=== PATIENT | female | born 1945 | race Caucasian/White ===

== ENCOUNTER → 2017-02-13 | Outpatient (CLI) | payer BC ==
[~2017-02-13] MED LIST: AMB5 PO; ASPI1TAB48 PO; CIPR-255 PO; SERT25TA PO; SYN25 PO; SYN50 PO
[2017-02-13 12:34] LABS: CHOLESTEROL/HDL RATIO 3.6; THYROID STIMULATING HORMONE 0.672 uIu/ml (0.300-4.500)
== END | disposition home or self-care (01) ==
LOC: C.LABBC 07:36
PROVIDERS: ATTEND Internal Medicine
DX: E78.5 Hyperlipidemia, unspecified (principal); N95.2 Postmenopausal atrophic vaginitis; E03.9 Hypothyroidism, unspecified

== ENCOUNTER → 2017-04-20 | Outpatient (CLI) | payer BC | END | disposition home or self-care (01) | LOC: C.LAB 10:21 | PROVIDERS: ATTEND Orthopaedic Surgery Sports Medicine | DX: Z01.810 Encounter for preprocedural cardiovascular examination (principal) ==

== ENCOUNTER → 2018-03-08 | Outpatient (CLI) | payer BC ==
[2018-03-08 11:25] LABS: AST/SGOT 20 U/L (15-37); BLOOD UREA NITROGEN 21 mg/dl (7-18); CALCIUM 8.7 mg/dl (8.5-10.1); CARBON DIOXIDE 26 mmol/L (21-32); CREATININE 1.01 mg/dl (0.60-1.20); GLUCOSE 90 mg/dl (70-99); POTASSIUM 4.1 mmol/L (3.5-5.1); SODIUM 141 mmol/L (136-145)
[2018-03-08 11:36] LABS: ALT/SGPT 26 U/L (12-78); CHOLESTEROL 228 mg/dl (0-200); LDL CHOLESTEROL CALCULATED 150 mg/dl
== END | disposition home or self-care (01) ==
LOC: C.LABBC 08:09
PROVIDERS: ATTEND Internal Medicine
DX: E78.5 Hyperlipidemia, unspecified (principal); E55.9 Vitamin D deficiency, unspecified; E03.9 Hypothyroidism, unspecified

== ENCOUNTER 2025-04-28 05:25 | Observation (INO) ==
--- NOTE | 2025-03-30 15:27 | PAT Medication Instructions ---
Medication Instructions Date of Service March 30, 2025 Home Medications Medication Instructions Recorded nystatin-triamcinolone 100,000 1 applic topical BID PRN rash #30 08/30/21 unit/g-0.1 % topical cream grams zolpidem 5 mg tablet 5 mg PO HS PRN sleep #30 tabs 03/24/25 cholecalciferol (vitamin D3) 50 mcg (2,000 unit) capsule 2,000 units PO QAM nystatin-triamcinolone 100,000 unit/g-0.1 % topical cream 1 applic topical BID PRN rash zolpidem 5 mg tablet 5 mg PO HS PRN sleep acetaminophen 500 mg tablet 500 mg PO Q6H PRN prn escitalopram oxalate 5 mg tablet 5 mg PO QPM ibuprofen 200 mg tablet (Advil) 200 mg PO Q6H PRN prn levothyroxine 50 mcg tablet 50 mcg PO QAM rosuvastatin 10 mg tablet 10 mg PO QPM telmisartan 20 mg tablet 10 mg PO QAM ASK your surgeon for instructions ibuprofen 200 mg tablet (Advil) 200 mg PO Q6H PRN prn STOP taking 24 hours before surgery nystatin-triamcinolone 100,000 unit/g-0.1 % topical cream 1 applic topical BID PRN rash DO NOT take the morning of surgery cholecalciferol (vitamin D3) 50 mcg (2,000 unit) capsule 2,000 units PO QAM telmisartan 20 mg tablet 10 mg PO QAM Take morning of surgery With a small sip of water, OTHERWISE NOTHING TO EAT OR DRINK AFTER MIDNIGHT: acetaminophen 500 mg tablet 500 mg PO Q6H PRN prn (if needed) levothyroxine 50 mcg tablet 50 mcg PO QAM Take evening before surgery zolpidem 5 mg tablet 5 mg PO HS PRN sleep (if needed) acetaminophen 500 mg tablet 500 mg PO Q6H PRN prn (if needed) escitalopram oxalate 5 mg tablet 5 mg PO QPM rosuvastatin 10 mg tablet 10 mg PO QPM Other Notes If you have any questions please call us at [phone] or [phone] or [phone] or [phone]
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
[2025-04-28] MEDS: dexAMETHasone**PF** 10 MG/ML VIAL IV SCH (05:44)
[2025-04-28] MEDS: CeleBREX 200 MG CAP PO SCH (05:45)
[2025-04-28] MEDS: ACETAMINOPHEN 500 MG TAB PO SCH ×2 (05:45→11:31)
[2025-04-28] MEDS: FAMOTIDINE 20 MG TAB PO SCH (05:45)
[2025-04-28] MEDS: LR 15ML/HR IV SCH (05:45)
[2025-04-28] MEDS: LR 60ML/HR IV SCH (05:45)
[2025-04-28] MEDS: METOCLOPRAMIDE HCL 10 MG TABLET PO SCH (05:45)
[2025-04-28] MEDS ORDERED: ROPIVACAINE 0.5% 5 MG/ML 30 ML VIAL ONE (06:14)
[2025-04-28] MEDS ORDERED: BUPIVACAINE 0.5 % 5 MG/1 ML PF 10ML VIAL ONE (06:14)
[2025-04-28] MEDS ORDERED: EPINEPHrine INJ 1 MG/ML AMP ONE (06:15)
--- NOTE | 2025-04-28 06:40 | History & Physical Bridge Note ---
Date of Service April 28, 2025 History & Physical Bridge Note I have examined the patient, reviewed the History & Physical and in the interval since the performance of the History & Physical I have noted the following changes of clinical significance: no changes noted
[2025-04-28] MEDS ORDERED: MIDAZOLAM HCL 1 MG/ML 2ML VIAL ONE (06:44)
[2025-04-28] MEDS ORDERED: fentaNYL citrate PF 100 MCG/2 ML VIAL ONE (06:44)
[2025-04-28] MEDS ORDERED: ePHEDrine sulfate 50 MG/ML AMP IV PRN (07:04)
[2025-04-28] MEDS ORDERED: ATROPINE SULFATE 0.1 MG/ML 10ML SYR IV PRN (07:04)
[2025-04-28] MEDS ORDERED: LIDOCAINE 2% 2 ML VIAL/AMP(20MG/ML) INFIL ONE (07:16)
[2025-04-28] MEDS ORDERED: ePHEDrine sulfate 50 MG/5 ML SYR ONE (07:16)
[2025-04-28] MEDS ORDERED: PROPOFOL IV EMULSION 10 MG/ML 20 ML VIAL IV ONE (07:16)
[2025-04-28] MEDS: ROPIV 0.5% 246mg, Ketorolac 30mg, EPINEPHrine 0.5mg in NSS INFIL SCH (07:42)
[2025-04-28] MEDS: TRANEXAMIC ACID 1,000 MG **IV Intra-op IV SCH (08:03)
[2025-04-28] MEDS ORDERED: KETOROLAC 30 MG/ML VIAL ONE (08:31)
--- NOTE | 2025-04-28 09:01 | Operative Report ---
PG Post Operative Report Pre & Post Diagnosis Operation Date: 04/28/25 07:00 Pre-Op Diagnosis: Osteoarthrtitis Knee Right Post-Op Diagnosis: Osteoarthrtitis Knee Right I identified the patient and participated in the time-out.: Yes Procedure Operation Date: 04/28/25 07:00 Actual Procedures p Right Unicompartmental Knee(Right) - Phil Hearn MD Surgeon Phil Hearn MD Test Lead Rob Joseph PA-C Estimated Blood Loss 25 Findings Consistent with Post-Op Diagnosis Operative findings were advanced right knee medial compartment DJD. She had grade 4 [id number] disease of the distal femur as well as the proximal tibia. She had some fairly mild wear of the trochlea. The lateral compartment was well-preserved. Specimens Right knee sent for pathology. Anesthesia Type Spinal MAC Complications none Disposition Accompanied Patient To Recovery: No Indications The patient is an 80-year-old very active female whose had a several year history of increasing bilateral knee pain discomfort right side greater than left. She been through extensive conservative treatment over the years which became less successful over time. Will start and affect her ability to maintain an active lifestyle. X-rays show progressive knee arthritis. Her symptoms and radiographic findings localized to the medial side of the knee. She elected proceed with right partial knee replacement. Description of Procedure Operative implants consists of: 1 Biomet [place] size small femoral component. 2. Biomet [place] right medial size D tibial tray. 3. 5 mm mobile-bearing polyethylene insert. The patient was taken to the operating, identified, placed on the operating table in the supine position. All conductors were appropriately padded. IV antibiotics fibra anesthesia team. A spinal anesthetic and adductor canal block had been provided in the holding area. A Bustillo catheter was placed in sterile fashion. Right Tetrick was then placed. The right lower extremity was then prepped and draped in usual sterile fashion. The right leg was elevated and exsanguinated with use of an Esmarch and a turn was placed at 300 mmHg. An anterior approach of the right knee was then performed through a longitudinal incision beginning at the superior pole of the patella and extending just medial to the tibial tubercle. Sharp dissection was through subcutaneous tissue down the extensor mechanism. A medial parapatellar arthrotomy incision was made with the superior limb extending into the VMO. Some slight subperiosteal dissection was carried out medially taking great care to protect the MCL. The fat pad was resected. The medial meniscus was removed. I then examined the knee and the lateral compartment is pretty well-preserved. She had a very minimal trochlear disease and we elected proceed with a partial knee replacement. The osteophytes taken distal femur. The femur was then sized to a size small. The small spoon was placed. This was attached to the external tibial alignment jig with a 4G clamp. The tibial jig was pinned in place. The proximal tibial cut was made. The tibia sized to a size B. Attention drawn the femur. The distal femur examined with a sharp drill. The IM elvira was placed. A size small femoral template was placed and attached to the IM elvira. The holes were drilled for the femoral component. The posterior cutting guide was placed and a posterior cut was made. The 0 spigot was used and the distal femur was milled. I then resected the remnant of the medial meniscus. We then trialed the knee and the 5 feeler gauge fit well and flexion and the 2 in extension. Therefore use of 3 spigot and milled the distal femur. We trialed the knee in the 5 feeler gauge fit appropriately in flexion extension. We elected place these implants. All trial implants were removed. Posterior osteophyte cutting guide was placed. The posterior osteophyte was removed along with the anterior femoral bone. The cement drill was used to create some cement holes for the distal femur. The tibia was pinned in place. The toothbrush sawblade was used to create the defect for the keel. We then trialed the knee 1 more time and the 5 insert fit appropriately. We elected place his implants. All trial implants were removed. A single batch of [place] G cement was mixed. A Biomet [place] right medial size D tibial tray was cemented in place followed by a small femoral component. All extraneous cement was removed. The 5 feeler gauge was placed and the knee was brought out in a doing about 40 degrees short of full extension. Once the cement hardened a final cement check was then performed. We trialed the knee 1 more time and the 5 insert fit appropriately. The permanent 5 insert was placed. Attention drawn toward closing. The wound was irrigated extensively. We injected locally with 100 cc of Ortho mix. The patient did receive 1 g tranexamic acid. The tourniquet was then let down for final tourniquet time 63 minutes. Hemostasis assured with electrocautery. Extensor Metros then closed with #1 Vicryl suture in a [id number] fashion. The subcutaneous tissue then closed with 2 Dexon suture in a buried interrupted fashion skin was closed skin naveed. Leg was then cleaned and dried and a sterile dressing with Xeroform, 4 x 4's, ABD pad, sterile cast padding, Jose Luis bandage were applied. Patient then transferred to the recovery room in stable condition. Patient tolerated procedure well and there were no complications. Rob Joseph, my physician assistant sales center manager, was present for the entire procedure. His assistance was essential and required for appropriate patient positioning, prepping and draping, surgical exposure, performing the technical details of the operation, placement the implants, closure of the wound, and placement of the sterile bandage. I attest to the content of the Intraoperative Record and any orders documented therein. Any exceptions are noted below.
--- NOTE | 2025-04-28 09:11 | XRay Report ---
XR knee RT 1 or 2V routine CLINICAL HISTORY: Surgical Post Op COMPARISON: None FINDINGS: Medial right knee prosthesis shows no hardware complication. There is expected soft tissue gas. Skin naveed are present. IMPRESSION: Unremarkable postoperative exam. ACT 112: Negative or not required by law. Electronically signed by: Thad Jimenez M.D. 04/28/2025 9:10 AM
--- NOTE | 2025-04-28 09:44 | Anesthesiology Progress Note ---
Date of Service April 28, 2025 Anesthesia Post Procedure Vital Signs Vital Signs: Temp Pulse Pulse Resp BP Pulse Ox O2 Del Method 04/28/25 09:40 36.4 C L 69 14 130/57 L 95 Room Air 04/28/25 09:30 68 18 136/57 L 94 Room Air 04/28/25 09:20 69 16 132/55 L 94 Room Air 04/28/25 09:10 74 14 128/57 L 93 Room Air 04/28/25 09:00 79 12 114/55 L 96 Oxymask 04/28/25 08:50 36.1 C L 108 H 24 128/58 L 94 Oxymask 04/28/25 05:35 36.5 C 57 L 20 156/72 H 99 Room Air O2 Flow Rate 04/28/25 09:40 04/28/25 09:30 04/28/25 09:20 04/28/25 09:10 04/28/25 09:00 4 04/28/25 08:50 4 04/28/25 05:35 Transfer of Care Handoff Completed per policy Notes Mental Status: alert / awake / arousable Patient Amnestic to Procedure: Yes Nausea / Vomiting: adequately controlled Pain: adequately controlled Airway Patency, RR, SpO2: stable & adequate BP & HR: stable & adequate Hydration State: stable & adequate Anesthetic Complications: no major complications apparent
[2025-04-28] MEDS ORDERED: HYDROmorphone INJ 0.5 MG/0.5 ML SYR IV PRN (10:16)
[2025-04-28] MEDS ORDERED: bisacodyL 10 MG SUPP PR PRN (10:16)
[2025-04-28] MEDS ORDERED: ONDANSETRON INJ 2 MG/ML 2 ML VIAL IV PRN (10:16)
[2025-04-28] MEDS ORDERED: NALOXONE HCL 0.4 MG/1 ML VIAL/CARP IV PRN (10:16)
[2025-04-28] MEDS ORDERED: METOCLOPRAMIDE HCL INJ 5 MG/ML 2 ML VIAL IV PRN (10:16)
[2025-04-28] MEDS ORDERED: traMADol HCL 50 MG TABLET PO PRN (10:16)
[2025-04-28] MEDS ORDERED: SENNA 8.6 MG TAB PO SCH (10:16)
[2025-04-28] MEDS ORDERED: NYSTATIN/TRIAMCIN CR 15 GM TUBE EXT PRN (10:16)
[2025-04-28] MEDS ORDERED: ALUMINUM/MAGNESIUM SUSP 30 ML UDC PO PRN (10:16)
[2025-04-28] MEDS ORDERED: MAGNESIUM HYDROXIDE SUSP 30 ML UDC PO PRN (10:16)
[2025-04-28] MEDS: ceFAZolin 2000MG 2,000 MG/15 ML SYR IV SCH (10:17)
[2025-04-28] MEDS: ORTHO JOINT ANESTHETIC ONE (10:17)
[2025-04-28] MEDS: SODIUM CHLORIDE 0.9% 1,000 ML IV SCH (10:30)
[2025-04-28] MEDS: CHOLECALCIFEROL 25 MCG (1000 UNITS) TAB PO SCH (11:32)
[2025-04-28] MEDS: KETOROLAC TROMETHAMINE 15 MG/ML VIAL IV SCH (11:32)
[2025-04-28] MEDS: DOCUSATE SODIUM 100 MG CAP PO SCH (11:32)
[2025-04-28] MEDS: LEVOTHYROXINE SODIUM 50 MCG TABLET PO SCH (11:32)
[2025-04-28] MEDS: ASPIRIN 81 MG ECTAB PO SCH (11:32)
[2025-04-28] MEDS: MULTIVITAMIN TAB PO SCH (11:32)
[2025-04-28] MEDS: LOSARTAN POTASSIUM 25 MG TAB PO SCH (11:32)
[2025-04-28] MEDS: ceFAZolin 1000MG 1,000 MG/7.5 ML SYR IV SCH (14:52)
[2025-04-28] MEDS: TRANEXAMIC ACID / 0.7% NACL 1,000 MG/100 ML BAG IV SCH (14:52)
[2025-04-28] MEDS: ASCORBIC ACID 500 MG TAB PO SCH (17:37)
[2025-04-28] MEDS: SENNA 8.6 MG TAB PO SCH (22:22)
[2025-04-28] MEDS: ROSUVASTATIN CALCIUM 10 MG TAB PO SCH (22:25)
[2025-04-28] MEDS: ESCITALOPRAM OXALATE 10 MG TAB PO SCH (22:25)
[2025-04-29] MEDS: ZOLPIDEM TARTRATE 5 MG TAB PO PRN (03:41)
[2025-04-29 03:53] VITALS: TEMP 97.9
[2025-04-29 06:23] LABS: Hematocrit (blood only) 26.8 % (37.0-47.0); Hemoglobin 9.2 g/dl (12.0-16.0); Mean Corpuscular Hemoglobin 31.5 pg (25.0-34.0); Mean Corpuscular Hgb Conc 34.3 g/dL (32.0-36.0); Mean Corpuscular Volume 91.8 fL (80.0-100.0); Platelet Count 236 K/uL (130-400); RDW Coefficient of Variation 12.8 % (11.5-14.5); RDW Standard Deviation 42.6 fL (36.4-46.3); Red Blood Count 2.92 M/uL (4.20-5.40); White Blood Count 11.13 K/ul (4.8-10.8)
[2025-04-29 06:40] LABS: BUN Creatinine Ratio 19.4 (10-20); Calcium 8.9 mg/dl (8.6-10.3); Creatinine Clr Calc Pharmacy 32.9 ml/min
[2025-04-29 08:21] VITALS: BP 143/70; PULSE 61
[2025-04-29] MEDS: dexAMETHasone 10 MG in SYRINGE 0 ML IV SCH (08:22)
[2025-04-29 08:29] VITALS: RESP 16; O2SAT 97
--- NOTE | 2025-04-29 08:32 | Orthopedic Progress Note ---
Date of Service April 29, 2025 Assessment & Plan (1) Status post right partial knee replacement: Plan: 80-year-old female postop day 1 from a right partial knee replacement doing well. She does have some underlying anemia which is stable. Asymptomatic. Plan: 1. DVT prophylaxis including thigh-high teds, SCDs, aspirin twice a day. 2. PT/OT. Weight-bear as tolerated right total knee protocol. 3. Pain control. Doing well with current pain regimen. 4. Disposition. Plan is to discharge to home with some home health likely after therapy today. (2) Hypertension: (3) Hyperlipidemia: (4) Hypothyroidism: (5) Anemia: Admission and Anticipated Discharge Date Admission Date: April 28, 2025 Subjective 80-year-old female postop day 1 from a right partial knee replacement. She has been doing well. She just feels like she is getting the feeling back in her knee. She been up and walk around several times last night and this morning. Pain is controlled. No chest pain or shortness of breath. Physical Exam Physical Exam: Physical nation of the right leg reveals the dressing be clean dry and intact. Leg is well aligned. He can dorsiflex and plantarflex the foot appropriately. She is neurologically intact. She can do a good straight leg raise. Respiratory: normal respiratory effort, lungs clear to auscultation Cardiovascular: RRR, no murmur, no edema Gastrointestinal (Abdomen): normal bowel sounds, soft, nontender, no hepatosplenomegaly Results & Data Vital Signs (Past 12 Hours) Vital Signs Temp Pulse Pulse Resp BP Pulse Ox O2 Del Method 04/29/25 08:27 36.6 C 61 16 143/70 H 97 Room Air 04/29/25 08:21 61 143/70 H 04/29/25 03:00 36.6 C 58 L 18 127/83 98 Room Air 04/28/25 23:00 36.7 C 70 18 167/67 H 97 Room Air Laboratory Results Hemoglobin is 9.2. Hematocrit is 26.8. Electrolytes are stable.
== END 2025-04-29 11:45 | disposition home health service (06) ==
LOC: ASU 05:25 → 3W 05:25